=== PATIENT | male | born 1940 ===

== ENCOUNTER 2023-12-26 13:18 | Outpatient (CLI) | payer OTHER | END 2023-12-26 13:19 | disposition home or self-care (01) | LOC: CT 13:18 | PROVIDERS: ATTEND Thoracic Surgery (Cardiothoracic Vascular Surgery) | DX: I71.40 Abdominal aortic aneurysm, without rupture, unspecified (principal); I72.3 Aneurysm of iliac artery; Z95.828 Presence of other vascular implants and grafts | CPT/HCPCS: 36415; 74174; 82565 ==